=== PATIENT | female | born 1995 | race American Indian/Alaskan Native ===

== ENCOUNTER 2024-12-12 13:11 | Emergency (ER) | payer OTHER, MEDICAID ==
[~2024-12-12] VITALS: Ht 177.8 cm; Wt 67.7 kg
[2024-12-12] MEDS ORDERED: NAPROSYN500 MG PO (13:57)
[2024-12-12 14:09] VITALS: BP 125/85
== END 2024-12-12 14:09 | disposition home or self-care (01) ==
LOC: ED 13:11
DX: S93.601A Unspecified sprain of right foot, initial encounter (principal); X50.1XXA Overexertion from prolonged static or awkward postures, initial encounter
CPT/HCPCS: 73630; 99283

== ENCOUNTER 2025-04-16 14:54 | Emergency (ER) | payer MEDICAID ==
[~2025-04-16] VITALS: Ht 165.1 cm; Wt 67.0 kg
[~2025-04-16 14:54] MED LIST: NAPROSYN500 MG PO
[2025-04-16] MEDS ORDERED: TETRACAINE HCL 0.5% 4 ML BTL OS ONE (17:45)
[2025-04-16] MEDS ORDERED: FLUORESCEIN SOD 1 EA STRP OS ONE (17:45)
[2025-04-16] MEDS ORDERED: ERYTHROMYCIN 3.5 GM HOME.PACK OP ONE (18:45)
[2025-04-16 18:52] VITALS: BP 130/62
== END 2025-04-16 18:52 | disposition home or self-care (01) ==
LOC: ED 14:54
DX: H10.212 Acute toxic conjunctivitis, left eye (principal)
CPT/HCPCS: 99283

== ENCOUNTER 2025-05-30 21:50 | Emergency (ER) | payer MEDICAID, OTHER ==
[~2025-05-30] VITALS: Ht 165.1 cm; Wt 67.8 kg
[2025-05-30] MEDS ORDERED: HYDROCODONE/ACETA 5/325 TAB PO ONE (23:30)
[2025-05-30] MEDS ORDERED: CEPHALEXIN500 M1 PO (23:42)
[2025-05-30] MEDS ORDERED: TRAMADOL HCL 50 MG HOME.PACK PO ONE (23:45)
[2025-05-30 23:55] VITALS: BP 120/73
== END 2025-05-30 23:55 | disposition home or self-care (01) ==
LOC: ED 21:50
DX: S61.212A Laceration without foreign body of right middle finger without damage to nail, initial encounter (principal); W25.XXXA Contact with sharp glass, initial encounter
CPT/HCPCS: 12001; 99282-25

== ENCOUNTER 2025-06-01 11:20 | Emergency (ER) | payer MEDICAID ==
[~2025-06-01] VITALS: Ht 165.1 cm; Wt 67.8 kg
[~2025-06-01 11:20] MED LIST changes: +CEPHALEXIN500 M1 PO
--- OUTSIDE RECORDS SUMMARY | 2025-06-01 11:27 | XMS ---
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 [place] - 2 Visits in 30 Days CARE PROVIDERS There are no care providers on record at this time. Sarah has no Care Guidelines for this patient. Georg[facility] V[facility] (12 [address] [facility] NOTE: Visits indicate total known visits. ED/[facility] VISIT TRACKING (12 MO.) [facility]25 11[facility] COMPLAINT: - LACERATION RT HAND 05/30/2025 21:52 [facility] TYPE: Emergency COMPLAINT: - LACERATION 04/16/2025 14:58 [facility] TYPE: Emergency COMPLAINT: - POSSIBLE FOREIGN OBJECT LT EYE DIAGNOSES: - Acute toxic conjunctivitis, left eye - Ocular pain, left eye 12/12/2024 13:12 [facility] TYPE: Emergency COMPLAINT: - RT ANKLE INJURY DIAGNOSES: - Overexertion from prolonged static or awkward postures, initial encounter - Pain in left foot - Unspecified sprain of right foot, initial encounter INPATIENT VISIT TRACKING (12 MO.) No inpatient visits to display in this time frame [email or web address]
[2025-06-01] MEDS ORDERED: HYDROCODON-ACE1 EA10 PO (13:04)
[2025-06-01 13:33] VITALS: BP 117/76
== END 2025-06-01 13:34 | disposition home or self-care (01) ==
LOC: ED 11:20
DX: S60.221A Contusion of right hand, initial encounter (principal); W22.8XXA Striking against or struck by other objects, initial encounter
CPT/HCPCS: 73130; 99283